=== PATIENT | male | born 1935 | race Caucasian/White ===

== ENCOUNTER 2016-12-03 11:08 | Emergency (ER) | payer OTHER ==
--- NOTE | 2016-12-03 14:05 | ED ORDER SUMMARY ---
..... Patient: VIRGILIO FIELD [facility]Sheet [facility] VisitID: [id number] [place] [address] 81y, M Registration Date/Time: 12/03/2016 ORDER SHEET Weight: 72.5 kg (estimated) Allergies: No Known Drug Allergy GENERAL ORDERS: CBC w Diff Urgent (11:54 12/03/2016 Heber Maxwell) (13:30 JSimbeck R.N.) (Ack 13:30 LNations ER Tech1) CMP Urgent (11:54 12/03/2016 Heber Maxwell) (13:30 RUSTAMimbeck R.N.) (Ack 13:30 LNations ER Tech1) UA-Culture if indicated Urgent (11:54 12/03/2016 Heber Maxwell) (12:43 JSimbeck R.N.) MEDICATION ORDERS: Ceftriaxone IM 1 gm (NOW) (13:54 12/03/2016 Heber Maxwell) (14:03 LSullivan R.N.) IV FLUIDS: ORDER SHEET NOTES: This document has not been locked and should not be saved in the medical record.
--- NOTE | 2016-12-03 14:05 | ED ORDER SUMMARY ---
..... Patient: VIRGILIO FIELD OrderSheet [facility] VisitID: [id number] [place] [address] 81y, M Registration Date/Time: 12/03/2016 ORDER SHEET Weight: 72.5 kg (estimated) Allergies: No Known Drug Allergy GENERAL ORDERS: CBC w Diff Urgent (11:54 12/03/2016 Heber Maxwell) (13:30 JSimbeck R.N.) (Ack 13:30 LNations ER Tech1) CMP Urgent (11:54 12/03/2016 Heber Maxwell) (13:30 RUSTAMimbeck R.N.) (Ack 13:30 LNations ER Tech1) UA-Culture if indicated Urgent (11:54 12/03/2016 Heber Maxwell) (12:43 JSimbeck R.N.) MEDICATION ORDERS: Ceftriaxone IM 1 gm (NOW) (13:54 12/03/2016 Heber Maxwell) (14:03 LSullivan R.N.) IV FLUIDS: ORDER SHEET NOTES: This document has not been locked and should not be saved in the medical record.
--- NOTE | 2016-12-03 14:05 | ED NURSING NOTES ---
Clinical Report - Nurses [address] [address] [place] [address] 12/03/2016 11:10 [id number] Triage time 11:16. Acuity: LEVEL 3. Chief Complaint: SEIZURE (single episode) and (lasted 15 seconds). 11:22 12/03/16. SEPSIS SCREEN: Sepsis Screen. Negative (no infection suspected/documented). HERMILA COMA SCORE: Hermila Coma Scale: 9- eyes open spontaneously (4); best verbal response- none (1); best motor response- withdrawal (4). --11:26 King White R.N. 11:16 12/03/16. BP: 156/109. HR: 103. RR: 16. O2 saturation: 91% on room air. Temp: 97.6 F (oral). --11:26 King White R.N. Weight: 72.5 kg estimated. Height/Length: 70 inches Estimated. BMI: 22.9. --11:23 King White R.N. Medications Acetaminophen Oral 650 mg, 3x a day as needed. Aspirin Oral (Tablet Chewable 81 mg) 1 tablet, daily. Donepezil HCl Oral (Tablet 10 mg) 1 tablet, daily. --11:18 King White R.N. RisperiDONE Oral (Tablet Dispersible 0.25 mg) 1 tablet, at bedtime. --11:18 King White R.N. The following entry was struck by King White R.N., 11:32 (12/03/16) Reason - other(No longer taking). <<STRICKEN ENTRY-- ProAir HFA Inhalation 2 puffs, as needed (every 4 hours). --11:18 King White R.N. --END STRIKE>> The following entry was struck and corrected by King White R.N., 11:31 (12/03/16) Reason for correction - other(correction). <<STRICKEN ENTRY-- RisperiDONE Oral (Tablet Dispersible 0.25 mg) 1 tablet, 2x a day. --11:18 King White R.N. --END STRIKE>>. Allergies No Known Drug Allergy. --11:18 King White R.N. History Arrived by EMS. This occurred just prior to arrival. ( Pt is non-verbal, at his baseline he only responds with one word responses. Pt is restless and confused, picking at his monitor wires.). 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 --11:26 King White R.N. PROBLEMS: Vomiting. UTI - Urinary Tract Infection. Cervical Strain. Fall. Cholecystitis. Dementia. Changed Mental Status. Hypertension. Immunizations. --11:18 King White R.N. Seizures. --11:20 King White R.N. Urinary Incontinence. --11:25 King White R.N. POLST Form dated 05/17/2014. --11:33 King White R.N. ADDITIONAL SURGERIES: Prostate surgery. --11:18 King White R.N. Interventions ID band on patient. To treatment room. --11:26 King White R.N. PHYSICAL ASSESSMENT 11:28 12/03/16. To room via stretcher. GENERAL / NEURO / PSYCH: Alert. Appears in no acute distress. The patient is disoriented to place, time and situation. Patient appears well-nourished. ( non-verbal, restless, uncooperative, pulling at his monitor wires.). HEENT: No facial asymmetry noted. Mucous membranes are pink. RESPIRATORY: Respirations not labored. Breath sounds within normal limits. CVS: Capillary refill less than 2 seconds. GI / : Abdomen soft. Bowel sounds within normal limits. Urinary incontinence noted. SKIN: Skin is warm and dry. Poor skin turgor. --11:29 King White R.N. NURSING PROGRESS NOTES 11:34 12/03/16. Patient gowned. Reassurance given. Seizure precautions initiated: side rails up x2 and padded, suction at bedside, patient in view of nurse's station and call santana in reach. Two patient identifiers checked. Call light placed in reach. Side rails up x 2. Bed placed in lowest position. Brakes of bed on. Patient ready for evaluation- chart flagged. --11:34 King White R.N. ( seizure pads applied to patient bed. (Precautionary)). --11:44 Paul Grewal 11:45 12/03/16. BP: 134/68. HR: 70. RR: 16. O2 saturation: 91% on room air. --13:16 King White R.N. 12:15 12/03/16. BP: 119/73. HR: 70. RR: 16. O2 saturation: 91% on room air. --13:17 King White R.N. 13:00 12/03/16. BP: 127/84. HR: 72. RR: 16. O2 saturation: 91% on room air. --13:18 King White R.N. 14:03 12/03/2016 Ceftriaxone IM 1 gm given. Given in the left ventral gluteus. Allergies verified and confirmed 5 rights. --14:03 Neetu Sylvester R.N. 14:17 12/03/16. ( Phone call placed to pt's son, King, informed him of pt's diagnosis and treatment, he stated he will call to see if [facility] will send a van to pick pt up.). --14:17 Neetu Sylvester R.N. 14:45 12/03/16. BP: 126/97. HR: 70. RR: 16. O2 saturation: 95% on room air. Lema-Concepcion pain scale: 0/10. --15:31 King White R.N. 15:00 12/03/16. BP: 142/105. HR: 68. RR: 16. O2 saturation: 95% on room air. Temp: 97.6 F. Lema-Concepcion pain scale: 0/10. --15:32 King White R.N. DISPOSITION / DISCHARGE 15:33 12/03/16. Departure time: 1525. Condition at departure: unchanged and stable. Teaching performed with the forest technician. Discharge instructions provided and reviewed with the caregiver. Reviewed medication(s). Treatments reviewed. Written instructions provided in Yakut. Caregiver verbalized understanding. The patient was discharged by the physician. [facility] and accompanied by invas tech. He left the Emergency Department in a wheelchair and via private vehicle. Corporation Lawyer driving. --15:33 King White R.N. Locked/Released at 12/05/2016 8:21 by King White R.N.
--- NOTE | 2016-12-03 14:05 | ED CLINICAL REPORT ---
Clinical Report - Physicians/Mid Levels [facility] [address] [place] [address] 12/03/2016 11:10 Patient: VIRGILIO FIELD *This is a preliminary document and is subject to change Time Seen: 1116; initial patient contact. Arrived- By ambulance. Historian- EMS personnel. History limited by dementia. Physical Exam limited by dementia. HISTORY OF PRESENT ILLNESS Chief Complaint: SINGLE SEIZURE. This occurred just prior to arrival. Is no longer seizing. He recovered at the scene (lasted about 15 seconds). Seizure was witnessed. The patient lost consciousness. Generalized motor activity observed. He was incontinent (unknown due to progressive dementia). No injuries noted. Did not recently change anticonvulsant medication or miss recent dose of anticonvulsant. Has not recently been ill. Similar symptoms previously: Several times. Recent medical care: Not recently seen/assessed. REVIEW OF SYSTEMS No fever. All systems otherwise negative, except as recorded above. PAST HISTORY ( Vomiting. UTI - Urinary Tract Infection. Cervical Strain. Fall. Cholecystitis. Dementia. Changed Mental Status. Hypertension. Immunizations. Seizures. Urinary Incontinence. SURGERIES: Prostate surgery). Medications: RisperiDONE Oral (Tablet Dispersible 0.25 mg) 1 tablet, at bedtime. Acetaminophen Oral 650 mg, 3x a day as needed. Aspirin Oral (Tablet Chewable 81 mg) 1 tablet, daily. Donepezil HCl Oral (Tablet 10 mg) 1 tablet, daily. Allergies: No Known Drug Allergy. SOCIAL HISTORY Smoker - current status unknown. No alcohol use or drug use. ADDITIONAL NOTES The nursing notes have been reviewed with agreement regarding the chief complaint, PMH and patient medications and allergies. PHYSICAL EXAM Vital Signs: 12/03/2016 11:16 BP: 156/109. HR: 103. RR: 16. O2 saturation: 91%. Temp: 97.6 F. Have been reviewed. Hypertensive. Tachycardic. Respiratory rate normal. Temperature normal. Oxygen saturation low. Appearance: Alert. No acute distress. ENT: Moist mucous membranes. CVS: Normal heart rate and rhythm. Heart sounds normal. Respiratory: No respiratory distress. Breath sounds normal. Abdomen: Soft and nontender. No organomegaly. Skin: Skin warm and dry. Normal skin color. No rash. Normal skin turgor. Extremities: No lower extremity edema. Neuro: Alert. LABS, X-RAYS, AND EKG Laboratory Tests: UA-Culture if indicated: (MATA: 12/03/2016 12:40) ( [facility] 12/03/2016 13:12) Final results Test Result Flag Units (Reference) URINE COLOR YELLOW URINE APPEARANCE CLOUDY URINE GLUCOSE NEGATIVE (NEGATIVE) URINE BILIRUBIN NEGATIVE (NEGATIVE) URINE KETONE NEGATIVE (NEGATIVE) URINE SPECIFIC GRAVITY >= 1.030 (1.010-1.030) URINE PH 5.0 (5.0-8.0) URINE PROTEIN 1+ (NEGATIVE) URINE UROBILINOGEN 1.0 EU/dL (0.2-1.0) URINE NITRITE NEGATIVE (NEGATIVE) URINE BLOOD TRACE-LYSED (NEGATIVE) URINE LEUK ESTERASE POSITIVE (NEGATIVE) URINE RBC 0-1 rbc/hpf (0-1) URINE WBC >100 wbc/hpf (0-1) URINE EPITHELIAL CELLS 3-5 EPI/hpf (0-5) URINE BACTERIA MODERATE (2+ TO 3+) (NONE SEEN) URINE COMMENT CULTURE INDICATED RARE HYALINE CASTS1+ MUCUSURINE CULTURES ARE SET-UP BASED ON THE FOLLOWING CRITERIA:POSITIVE NITRITEPOSITIVE LEUKOCYTE ESTERASEGREATER THAN 10 WHITE BLOOD CELLSMODERATE (2+) OR GREATER BACTERIA CBC w Diff: (MATA: 12/03/2016 13:15) ( [facility] 12/03/2016 13:28) Final results Test Result Flag Units (Reference) WHITE BLOOD COUNT 12.1 H K/uL (4.5-11.5) RED BLOOD COUNT 4.04 L M/uL (4.50-5.90) HEMOGLOBIN 13.1 L gm/dL (13.5-17.5) HEMATOCRIT 39.7 L % (41.0-53.0) MEAN CELL VOLUME 98 fL (80-100) MEAN CORPUSCULAR HGB 33 pg (26-34) MEAN CORPUSCULAR HGB CONC 33 g/dL (31-37) RED CELL DISTRIBUTION WIDTH 14.8 % (11.6-14.8) PLATELET COUNT 166 K/uL (150-400) NEUTROPHIL % 88.4 H % (50-75) LYMPH % 6.5 L % (25-40) MONO % 4.4 % (3-14) EOSINOPHIL % 0.6 % (0-4) BASOPHIL % 0.1 % (0-2) CMP: (MATA: 12/03/2016 13:15) ( MsgRcvd 12/03/2016 13:52) Final results Test Result Flag Units (Reference) GLUCOSE 169 H mg/dL (70-110) BUN 17 mg/dL (7-18) CREATININE 1.0 mg/dL (0.6-1.3) Estimated GFR >60 mL/min Estimated GFR- >60 mL/min Note: Persistent reduction over 3 months in eGFR<60 mL/min/1.73 m2 defines CKD. Patients with eGFR values>=60 mL/min/1.73 m2 may also have CKD if evidence ofpersistent proteinuria. Additional information may be foundat www.kidney.org. SODIUM 138 mmol/L (136-145) POTASSIUM 3.6 mmol/L (3.5-5.1) CHLORIDE 104 mmol/L (98-107) CARBON DIOXIDE 20 L mmol/L (21-32) CALCIUM 8.6 mg/dL (8.5-10.1) TOTAL PROTEIN 6.4 g/dL (6.4-8.2) ALBUMIN 3.4 g/dL (3.3-5.0) BILIRUBIN, TOTAL 0.6 mg/dL (0.0-1.0) ALKALINE PHOSPHATASE 91 U/L (46-116) AST (SGOT) 29 U/L (15-37) ALT (SGPT) 27 U/L (12-78) . [address]
--- NOTE | 2016-12-03 14:05 | ED NURSING NOTES ---
Clinical Report - Nurses [address] [address] [place] [address] 12/03/2016 11:10 [id number] Triage time 11:16. Acuity: LEVEL 3. Chief Complaint: SEIZURE (single episode) and (lasted 15 seconds). 11:22 12/03/16. SEPSIS SCREEN: Sepsis Screen. Negative (no infection suspected/documented). HERMILA COMA SCORE: Hermila Coma Scale: 9- eyes open spontaneously (4); best verbal response- none (1); best motor response- withdrawal (4). --11:26 King Whiet R.N. 11:16 12/03/16. BP: 156/109. HR: 103. RR: 16. O2 saturation: 91% on room air. Temp: 97.6 F (oral). --11:26 King White R.N. Weight: 72.5 kg estimated. Height/Length: 70 inches Estimated. BMI: 22.9. --11:23 King White R.N. Medications Acetaminophen Oral 650 mg, 3x a day as needed. Aspirin Oral (Tablet Chewable 81 mg) 1 tablet, daily. Donepezil HCl Oral (Tablet 10 mg) 1 tablet, daily. --11:18 King White R.N. RisperiDONE Oral (Tablet Dispersible 0.25 mg) 1 tablet, at bedtime. --11:18 King White R.N. The following entry was struck by King White R.N., 11:32 (12/03/16) Reason - other(No longer taking). <<STRICKEN ENTRY-- ProAir HFA Inhalation 2 puffs, as needed (every 4 hours). --11:18 King White R.N. --END STRIKE>> The following entry was struck and corrected by King White R.N., 11:31 (12/03/16) Reason for correction - other(correction). <<STRICKEN ENTRY-- RisperiDONE Oral (Tablet Dispersible 0.25 mg) 1 tablet, 2x a day. --11:18 King White R.N. --END STRIKE>>. Allergies No Known Drug Allergy. --11:18 King White R.N. History Arrived by EMS. This occurred just prior to arrival. ( Pt is non-verbal, at his baseline he only responds with one word responses. Pt is restless and confused, picking at his monitor wires.). 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 --11:26 King White R.N. PROBLEMS: Vomiting. UTI - Urinary Tract Infection. Cervical Strain. Fall. Cholecystitis. Dementia. Changed Mental Status. Hypertension. Immunizations. --11:18 King White R.N. Seizures. --11:20 King White R.N. Urinary Incontinence. --11:25 King White R.N. POLST Form dated 05/17/2014. --11:33 King White R.N. ADDITIONAL SURGERIES: Prostate surgery. --11:18 King White R.N. Interventions ID band on patient. To treatment room. --11:26 King White R.N. PHYSICAL ASSESSMENT 11:28 12/03/16. To room via stretcher. GENERAL / NEURO / PSYCH: Alert. Appears in no acute distress. The patient is disoriented to place, time and situation. Patient appears well-nourished. ( non-verbal, restless, uncooperative, pulling at his monitor wires.). HEENT: No facial asymmetry noted. Mucous membranes are pink. RESPIRATORY: Respirations not labored. Breath sounds within normal limits. CVS: Capillary refill less than 2 seconds. GI / : Abdomen soft. Bowel sounds within normal limits. Urinary incontinence noted. SKIN: Skin is warm and dry. Poor skin turgor. --11:29 King White R.N. NURSING PROGRESS NOTES 11:34 12/03/16. Patient gowned. Reassurance given. Seizure precautions initiated: side rails up x2 and padded, suction at bedside, patient in view of nurse's station and call santana in reach. Two patient identifiers checked. Call light placed in reach. Side rails up x 2. Bed placed in lowest position. Brakes of bed on. Patient ready for evaluation- chart flagged. --11:34 King White R.N. ( seizure pads applied to patient bed. (Precautionary)). --11:44 Paul Grewal 11:45 12/03/16. BP: 134/68. HR: 70. RR: 16. O2 saturation: 91% on room air. --13:16 King White R.N. 12:15 12/03/16. BP: 119/73. HR: 70. RR: 16. O2 saturation: 91% on room air. --13:17 King White R.N. 13:00 12/03/16. BP: 127/84. HR: 72. RR: 16. O2 saturation: 91% on room air. --13:18 King White R.N. 14:03 12/03/2016 Ceftriaxone IM 1 gm given. Given in the left ventral gluteus. Allergies verified and confirmed 5 rights. --14:03 Neteu Sylvester R.N. 14:17 12/03/16. ( Phone call placed to pt's son, King, informed him of pt's diagnosis and treatment, he stated he will call to see if [facility] will send a van to pick pt up.). --14:17 Neetu Sylvester R.N. 14:45 12/03/16. BP: 126/97. HR: 70. RR: 16. O2 saturation: 95% on room air. Lema-Concepcion pain scale: 0/10. --15:31 King White R.N. 15:00 12/03/16. BP: 142/105. HR: 68. RR: 16. O2 saturation: 95% on room air. Temp: 97.6 F. Lema-Concepcion pain scale: 0/10. --15:32 King White R.N. DISPOSITION / DISCHARGE 15:33 12/03/16. Departure time: 1525. Condition at departure: unchanged and stable. Teaching performed with the rope cleaner. Discharge instructions provided and reviewed with the caregiver. Reviewed medication(s). Treatments reviewed. Written instructions provided in Italian. Caregiver verbalized understanding. The patient was discharged by the physician. He was discharged to the shelter and accompanied by social media assistant. He left the Emergency Department in a wheelchair and via private vehicle. Farm Rancher driving. --15:33 King White R.N. Locked/Released at 12/05/2016 8:21 by King White R.N.
--- NOTE | 2016-12-05 08:21 | ED DISCHARGE INSTRUCTIONS ---
Patient: VIRGILIO FIELD General Instructions [facility] VisitID: [id number] [place] [address] 81y, M Registration Date/Time: 12/03/2016 Generalized seizure associated with illness.No history of poorly controlled epilepsy or history of epilepsy that is treatment resistant. Acute urinary tract infection with cystitis. INSTRUCTIONS Your Current Medications: CONTINUE TAKING THE FOLLOWING MEDICATIONS: Acetaminophen Oral : 650 mg 3x a day, prn. Aspirin Oral : Tablet Chewable 81 mg, 1 tablet daily. Donepezil HCl Oral : Tablet 10 mg, 1 tablet daily. RisperiDONE Oral : Tablet Dispersible 0.25 mg, 1 tablet at bedtime. Prescription Medications: Keflex 500 mg: take 1 capsule orally every 6 hours for 3 days. No refill. Substitution is permissible. Follow-up: Follow up with your doctor in about two days. Call for an appointment. Screening today revealed the patient's blood pressure to be in the pre-hypertensive range. The patient should follow up with a primary care provider for blood pressure management. ADDITIONAL INFORMATION Recurrent Seizure [Adult] You have had another seizure today. A common cause of recurrent seizure is missing doses of the seizure medicine. However, sometimes seizures are difficult to control even when you take the medicine correctly. If this is the case for you, it may be necessary to increase your dosage or add or change to another medicine. Home Care: For This Seizure: Since seizures are not predictable, you must avoid doing anything that might cause danger to you or others if you have another one. Therefore, until the seizures are under good control, take these precautions: Do not drive a car, bicycle or motorcycle Do not operate dangerous equipment such as power tools Use a shower instead of a bath Do not swim or climb (ladders, trees, roofs) Tell your close friends and relatives about your seizure and teach them what to do for you if it happens again. If you were prescribed a medicine to prevent seizures, take it exactly as directed. It does not work when taken on an "as needed" basis. Missing doses will increase the risk of having another seizure. If you miss a dose, take the missed dose as soon as you remember. If it is almost time for your next dose, skip the missed dose. Restart the medicine at your next scheduled time. Do not take extra medicine to make up the missed dose. Wear a "Medic-Alert" bracelet to advise emergency personnel of your condition. For Future Seizures: If You Are Alone: If you feel a seizure coming on, the best thing to do is to lie down on a bed or on the floor. Lie on your side, not on your back. This will prevent falling, promote drainage of oral secretions out of the mouth and prevent choking. Be sure that you are clear of any objects that might injure you during the seizure. Call for help if there is time. If Someone Is With You: If someone is with you before the seizure, they should help you get in a safe position and call for help. They should not try to force anything in your mouth once the seizure has begun. Doing this may cause injury. Follow Up with your doctor, or as directed by our staff. NOTE: For the safety of yourself and others on the road, certain states require that the treating doctor inform the Public Health Department of any adult who is treated for a seizure and is at risk of further seizures. In this case, the Department of Motor Vehicles (DMV) will be notified and a restriction will be placed on your drivers license until a doctor gives you medical clearance to drive again. Contact your treating doctor to find out if your state requires the reporting of patients with a seizures condition. Get Prompt Medical Attention if any of the following occur: Seizures occurring more often or becoming longer than usual Seizure lasting over 5 minutes No wake-up between seizures Remaining confused for more than 30 minutes after a seizure Injury during a seizure Fever over 100.4F (38.0C) Unusual irritability, drowsiness or confusion Stiff or painful neck Worsening headache Bladder Infection,Male (Adult) A bladder infection ("cystitis" or "UTI") usually causes a constant urge to urinate, and a burning when passing urine. Urine may be cloudy, smelly or dark. There may be also be pain in the lower abdomen. Cystitis in males is not common. It may be caused by a partial blockage in the urinary system that keeps the bladder from emptying completely. This is most often related to an enlarged prostate gland. Home Care: Drink lots of fluids (at least 6-8 glasses a day). This will flush the bacteria out of your bladder. Avoid sexual intercourse until your symptoms are gone. Avoid caffeine, alcohol, and spicy foods. They could irritate the bladder. A bladder infection is treated with antibiotics. You may also be given Pyridium (generic - phenazopyridine) to reduce burning with urination. This will cause urine to become a bright orange color, which can stain clothing. Follow Up with your doctor or this facility if ALL symptoms have not cleared within five days. It is important to keep your follow up appointment to discuss with your doctor the need for further tests of the urinary tract. Get Prompt Medical Attention if any of the following occur: Fever of 100.4F (38C) or higher, or as directed by your healthcare provider No improvement by the third day of treatment Increasing back or abdominal pain Repeated vomiting; unable to keep medicine down Weakness, dizziness or fainting Cephalexin Monohydrate Oral tablet What is this medicine? CEPHALEXIN (sef a LIBAN in) is a cephalosporin antibiotic. It is used to treat certain kinds of bacterial infections It will not work for colds, flu, or other viral infections. How should I use this medicine? Take this medicine by mouth with a full glass of water. Follow the directions on the prescription label. This medicine can be taken with or without food. Take your medicine at regular intervals. Do not take your medicine more often than directed. Take all of your medicine as directed even if you think you are better. Do not skip doses or stop your medicine early. Talk to your sailmaker regarding the use of this medicine in children. While this drug may be prescribed for selected conditions, precautions do apply. What side effects may I notice from receiving this medicine? Side effects that you should report to your doctor or health wound care center consultant as soon as possible: allergic reactions like skin rash, itching or hives, swelling of the face, lips, or tongue breathing problems pain or trouble passing urine redness, blistering, peeling or loosening of the skin, including inside the mouth severe or watery diarrhea unusually weak or tired yellowing of the eyes, skin Side effects that usually do not require medical attention (report to your doctor or health wound care center consultant if they continue or are bothersome): gas or heartburn genital or anal irritation headache joint or muscle pain nausea, vomiting What may interact with this medicine? probenecid some other antibiotics What if I miss a dose? If you miss a dose, take it as soon as you can. If it is almost time for your next dose, take only that dose. Do not take double or extra doses. There should be at least 4 to 6 hours between doses. Where should I keep my medicine? Keep out of the reach of children. Store at room temperature between 59 and 86 degrees F (15 and 30 degrees C). Throw away any unused medicine after the expiration date. What should I tell my health care provider before I take this medicine? They need to know if you have any of these conditions: kidney disease stomach or intestine problems, especially colitis an unusual or allergic reaction to cephalexin, other cephalosporins, penicillins, other antibiotics, medicines, foods, dyes or preservatives or trying to get breast-feeding What should I watch for while using this medicine? Tell your doctor or health wound care center consultant if your symptoms do not begin to improve in a few days. Do not treat diarrhea with over the counter products. Contact your doctor if you have diarrhea that lasts more than 2 days or if it is severe and watery. If you have diabetes, you may get a false-positive result for sugar in your urine. Check with your doctor or health wound care center consultant. You have been given the following additional information: Seizure, Recurrent [Adult] Bladder Infection, Male (Adult) Cephalexin Monohydrate Oral tablet (Electronically signed by Prince Yu Dr. 12/03/2016 22:33)
--- NOTE | 2016-12-05 08:21 | ED MED RECONCILIATION SUMMARY ---
Patient: VIRGILIO FIELD Medication Reconciliation Report VisitID: [id number] [address] [place] [address] 81y, M Registration Date/Time: 12/03/2016 Weight: 72.5 kg Height/Length: 70 in. BMI: 22.9 ALLERGIES: No Known Drug Allergy The patient's Home Medications are listed below: CONTINUE TAKING THE FOLLOWING MEDICATIONS: Acetaminophen Oral 650 mg, 3x a day Aspirin Oral (81 mg) 1 tablet, daily Donepezil HCl Oral (10 mg) 1 tablet, daily RisperiDONE Oral (0.25 mg) 1 tablet, at bedtime The source(s) of the original Home Medication information: Not obtained. The following Medications were given to the patient in the Emergency Department: Ceftriaxone [IM] IM 1 gm, administered: 12/03/2016 2:03:00 PM The following Medications were prescribed to the patient: Keflex 500 mg: take 1 capsule orally every 6 hours for 3 days. No refill. Substitution is permissible. -- Prince Yu Dr.
--- NOTE | 2016-12-05 08:21 | ED MED RECONCILIATION SUMMARY ---
Patient: VIRGILIO FIELD Medication Reconciliation Report [facility] VisitID: [id number] [address] [place] [address] 81y, M Registration Date/Time: 12/03/2016 Weight: 72.5 kg Height/Length: 70 in. BMI: 22.9 ALLERGIES: No Known Drug Allergy The patient's Home Medications are listed below: CONTINUE TAKING THE FOLLOWING MEDICATIONS: Acetaminophen Oral 650 mg, 3x a day Aspirin Oral (81 mg) 1 tablet, daily Donepezil HCl Oral (10 mg) 1 tablet, daily RisperiDONE Oral (0.25 mg) 1 tablet, at bedtime The source(s) of the original Home Medication information: Not obtained. The following Medications were given to the patient in the Emergency Department: Ceftriaxone [IM] IM 1 gm, administered: 12/03/2016 2:03:00 PM The following Medications were prescribed to the patient: Keflex 500 mg: take 1 capsule orally every 6 hours for 3 days. No refill. Substitution is permissible. -- Prince Yu Dr.
--- NOTE | 2016-12-05 08:21 | ED MAR SUMMARY ---
..... Medication Administration Record [facility] [address] [place] [address] Patient: VIRGILIO FIELD Visit ID: [id number] 81y, M Weight: 72.5 kg Height/Length: 70 in BMI: 22.9 ALLERGIES: No Known Drug Allergy Given 14:03 12/03/2016 Neetu Sylvester R.N. Medication Administered: CEFTRIAXONE [IM], Dose: 1 gm IM. Medication Ordered: Ceftriaxone IM 1 gm (NOW).
--- NOTE | 2016-12-05 08:21 | ED MAR SUMMARY ---
..... Medication Administration Record [facility] [address] [place] [address] Patient: VIRGILIO FIELD Visit ID: [id number] 81y, M Weight: 72.5 kg Height/Length: 70 in BMI: 22.9 ALLERGIES: No Known Drug Allergy Given 14:03 12/03/2016 Neetu Sylvester R.N. Medication Administered: CEFTRIAXONE [IM], Dose: 1 gm IM. Medication Ordered: Ceftriaxone IM 1 gm (NOW).
== END 2016-12-03 15:25 | disposition home or self-care (01) ==
LOC: ED SRH 11:08
DX: R56.9 Unspecified convulsions (principal); N30.00 Acute cystitis without hematuria; I10 Essential (primary) hypertension; Z79.82 Long term (current) use of aspirin; Z79.899 Other long term (current) drug therapy; F17.200 Nicotine dependence, unspecified, uncomplicated
CPT/HCPCS: 90004; 90074; 90100; 90469; 95059